=== PATIENT | male | born 1970 | race Hispanic/Latino ===

== ENCOUNTER 2019-05-25 23:12 | Emergency (ER) | payer OTHER ==
[2019-05-25] MEDS ORDERED: LIDOCAINE HCL 1% 20 ML VIAL ONE (23:57)
[2019-05-25] MEDS ORDERED: BUPIVACAINE/PF 0.5% 30ML VIAL ONE (23:57)
[2019-05-26] MEDS ORDERED: LIDOCAINE HCL-MPF 1% 2ML VIAL ONE (00:54)
[2019-05-26] MEDS ORDERED: CEFTRIAXONE SODIUM 1 GM ONE (00:54)
[2019-05-26] MEDS ORDERED: HYDROCODONE/ACETAMINOPHEN 5/325 MG TAB ONE (01:01)
== END 2019-05-26 01:26 | disposition home or self-care (01) ==
LOC: EDH 23:12
DX: S62.631A Displaced fracture of distal phalanx of left index finger, initial encounter for closed fracture (principal); S61.211A Laceration without foreign body of left index finger without damage to nail, initial encounter; X58.XXXA Exposure to other specified factors, initial encounter; Y93.89 Activity, other specified; Y92.89 Other specified places as the place of occurrence of the external cause; Y99.8 Other external cause status
CPT/HCPCS: 12042; 73140; 96372; 99284; J0696; J3490 ×2